=== PATIENT | male | born 1975 | race Caucasian/White ===

== ENCOUNTER 2018-02-14 08:28 | Emergency (ER) | payer MEDICAID ==
[~2018-02-14] VITALS: Ht 167.6 cm; Wt 92.5 kg
[2018-02-14 08:36] VITALS: Ht 167.6 cm; Wt 92.5 kg
[2018-02-14 10:21] VITALS: BP 138/89
== END 2018-02-14 10:21 | disposition home or self-care (01) ==
LOC: ED 08:28
DX: K61.1 Rectal abscess (principal)
CPT/HCPCS: 45005; J2001